=== PATIENT | female | born 1975 | race Caucasian/White ===

== ENCOUNTER 2017-01-14 05:42 | Observation (INO) | payer OTHER ==
[2017-01-14] MEDS ORDERED: LIDOCAINE 1% 2 ML INJ ID PRN (06:09)
[2017-01-14] MEDS ORDERED: LR 1,000 ML IV ONE (06:09)
[2017-01-14] MEDS ORDERED: BUPIVACAINE 0.25% 30 ML SDV ONE (06:55)
[2017-01-14] MEDS ORDERED: MIDAZOLAM 2 MG/2 ML VIAL IVP ONE (06:57)
--- NOTE | 2017-01-14 06:59 | PDANEPAE ---
ANE History of Present Illness Hysterectomy ANE Past Medical History - Cardiovascular History Hx Hypertension: No Hx Arrhythmias: No Hx Chest Pain: No Hx Coronary Artery / Peripheral Vascular Disease: No Hx CHF / Valvular Disease: No Hx Palpitations: No - Pulmonary History Hx COPD: No Hx Asthma/Reactive Airway Disease: No Hx Recent Upper Respiratory Infection: No Hx Oxygen in Use at Home: No Hx Sleep Apnea: No Sleep Apnea Screening Result - Last Documented: Negative - Neurologic History Hx Cerebrovascular Accident: No Hx Seizures: No Hx Dementia: No - Endocrine History Hx Diabetes: No - Renal History Hx Renal Disorders: No - Liver History Hx Hepatic Disorders: No - Neurological & Psychiatric Hx Hx Neurological and Psychiatric Disorders: No - Cancer History Hx Cancer: No - Congenital Disorder History Hx Congenital Disorders: No - GI History Hx Gastrointestinal Disorders: Yes Gastrointestinal History Comment: REFUX - Other Health History Other Health History: NONE - Chronic Pain History Chronic Pain: No - Surgical History Prior Surgeries: NONE ANE Review of Systems Review of systems is: negative Review of Systems: - Exercise capacity Exercise capacity: >=4 METS METS (RN): 4 METS ANE Patient History - Allergies Allergies/Adverse Reactions: No Known Allergies Allergy (Verified 12/26/16 11:06) - Home Medications Home Medications: NK [No Known Home Meds] 12/19/16 [Last Taken Unknown] - NPO status NPO Status: no food or drink >8 hours NPO Since - Liquids (Date): 01/14/17 NPO Since - Liquids (Time): 05:30 NPO Since - Solids (Date): 01/13/17 NPO Since - Solids (Time): 19:15 - Anes Hx Anes Hx: post operative nausea and vomiting Hx Anesthesia Complications (with details): none x 10yrs - Smoking Hx Smoking Status: Never smoked - Alcohol Use Alcohol Use: Rarely - Family Anes Hx Family Hx Anesthesia Complications: NONE ANE Labs/Vital Signs - Vital Signs Blood Pressure: 125/81 Heart Rate: 94 Respiratory Rate: 18 O2 Sat (%): 98 Height: 162.56 cm Weight: 78.471 kg ANE Physical Exam - Airway Mallampati Score: Class 2 Mouth exam: normal dental/mouth exam - Pulmonary Pulmonary: no respiratory distress - Cardiovascular Cardiovascular: regular rate and rhythym - ASA Status ASA Status: I ANE Anesthesia Plan Anesthesia Plan: general endotracheal anesthesia
[2017-01-14] MEDS ORDERED: SCOPOLAMINE HYDROBROMIDE 1 MG/3 DAYS PATCH TD SCH (07:00)
[2017-01-14] MEDS ORDERED: ceFAZolin 2 GM/SWFI 2 GM/20 ML SYR IVP ONE (07:14)
[2017-01-14] MEDS ORDERED: LIDOCAINE 2% 5 ML SDV ONE (07:15)
[2017-01-14] MEDS ORDERED: fentaNYL 100 MCG/2 ML INJ ONE ×4 (07:15→09:56)
[2017-01-14] MEDS ORDERED: ONDANSETRON 4 MG/2 ML VIAL ONE (07:15)
[2017-01-14] MEDS ORDERED: ROCURONIUM 100 MG/10 ML VIAL ONE (07:15)
[2017-01-14] MEDS ORDERED: DEXAMETHASONE 4 MG/ML VIAL ONE (07:15)
[2017-01-14] MEDS ORDERED: PROPOFOL 200 MG/20 ML VIAL ONE (07:15)
[2017-01-14] MEDS ORDERED: ceFAZolin 1 GM VIAL ONE ×2 (07:23)
[2017-01-14] MEDS ORDERED: KETOROLAC 30 MG/1 ML SDV ONE (09:35)
[2017-01-14] MEDS ORDERED: SUGAMMADEX SODIUM 200 MG/2 ML VIAL IVP ONE (09:35)
[2017-01-14] MEDS ORDERED: HYDROmorphONE/DILAUDID 1 MG/ML INJ IVP PRN ×2 (10:19→10:20)
[2017-01-14] MEDS ORDERED: PROMETHAZINE HCL 25 MG/ML INJ IVP PRN ×2 (10:19→10:20)
[2017-01-14] MEDS ORDERED: ACETAMINOPHEN 500 MG TAB PO PRN (10:19)
[2017-01-14] MEDS ORDERED: OXYCODONE/APAP 5/325 TAB PO PRN (10:19)
[2017-01-14] MEDS ORDERED: ALBUTEROL 3 ML DEYVIAL IH PRN (10:19)
[2017-01-14] MEDS ORDERED: NALOXONE HCL 0.4 MG/ML INJ IVP PRN (10:19)
[2017-01-14] MEDS ORDERED: fentaNYL 100 MCG/2 ML INJ IVP PRN (10:19)
[2017-01-14] MEDS ORDERED: HYDROCODONE/APAP 5/325 TAB PO PRN ×2 (10:19→10:20)
[2017-01-14] MEDS ORDERED: ONDANSETRON 4 MG/2 ML VIAL IVP PRN ×2 (10:19→10:20)
--- NOTE | 2017-01-14 10:19 | POSTANESTH ---
Post Anesthetic Evaluation Cardiovascular Status: Normal, Stable Respiratory Status: Normal, Stable Level of Consciousness/Mental Status: Can Participate in Eval Pain Control: Adequate, Prn Tx Ordered Nausea/Vomiting Control: Adequate, Prn Tx Ordered Complications Possibly Related to Anesthesia: None Noted
[2017-01-14] MEDS ORDERED: DIAZEPAM 10 MG/2 ML SYR IVP PRN (10:20)
--- NOTE | 2017-01-14 10:20 | POSTOPPROG ---
Post Op Note Date of Operation: 01/14/17 Surgeon: Buck Barrera Chain Link Fence Installer: Marilia Rankin Anesthesia: GET(General Endotracheal) Pre-op Diagnosis: Uterovaginal prolapse Post-op Diagnosis: Same Procedure: Robotic hyst, sacrocolpopexy, TOT sling, cysto Findings: Ureters function at end of case Inf/Abcess present in the surg proc area at time of surgery?: No EBL: Minimal Complications: None
[2017-01-14] MEDS ORDERED: LR 1,000 ML IV SCH (10:30)
[2017-01-14] MEDS ORDERED: HYDROmorphONE/DILAUDID 1 MG/ML INJ ONE (10:53)
[2017-01-14] MEDS: SIMETHICONE 80 MG TAB CHEW PO SCH ×3 (17:02→23:05)
[2017-01-14] MEDS: KETOROLAC 30 MG/1 ML SDV IVP SCH ×4 (17:09→23:38)
[2017-01-14] MEDS: DOCUSATE SODIUM 100 MG CAP PO SCH (22:19)
[2017-01-15] MEDS: KETOROLAC 30 MG/1 ML SDV IVP SCH ×3 (01:48→11:10)
[2017-01-15 05:56] LABS: HEMATOCRIT 32.3 % (38.0-47.0); HEMOGLOBIN 10.9 g/dL (12.6-16.3)
[2017-01-15] MEDS: DOCUSATE SODIUM 100 MG CAP PO SCH (08:32)
[2017-01-15 09:10] VITALS: BP 102/71; PULSE 92; RESP 14; TEMP 97.5; O2SAT 99
[2017-01-15] MEDS: SIMETHICONE 80 MG TAB CHEW PO SCH (10:27)
--- NOTE | 2017-01-15 11:45 | GOP ---
[f rep st] OPERATIVE REPORT DATE OF OPERATION: 01/14/2017 SURGEON: Buck Barrera MD MUSIC TEACHER: Marilia Rankin CFA. ANESTHESIA: General. PREOPERATIVE DIAGNOSIS: 1. Cystocele. 2. Rectocele. 3. Uterine prolapse. 4. Dysmenorrhea. 5. Stress urinary incontinence. 6. Endometriosis. POSTOPERATIVE DIAGNOSIS: 1. Cystocele. 2. Rectocele. 3. Uterine prolapse. 4. Dysmenorrhea. 5. Stress urinary incontinence. 6. Endometriosis. PROCEDURE PERFORMED: 1. Robotic-assisted laparoscopic hysterectomy, left salpingo-oophorectomy, right salpingectomy. 2. Robotic-assisted laparoscopic sacrocervicopexy with mesh. 3. Excision of endometriosis. 4. Left ureterolysis. 5. Repair of cystocele and rectocele. 6. Transobturator sling. 7. Perineorrhaphy. 8. Cystoscopy. FINDINGS: SPECIMENS: Uterus, bilateral tubes, left ovary, and peritoneum with endometriosis. ESTIMATED BLOOD LOSS: Less than 20 mL. DESCRIPTION OF PROCEDURE: The patient was taken to the operating room where she was identified. General anesthesia was administered and found to be adequate. She was placed in the lithotomy position and prepared and draped in normal sterile fashion. A Rooney catheter was placed in her bladder. A 1 cm infraumbilical incision was made with a scalpel. The Veress needle with a CO2 gas flowing was advanced into the peritoneal cavity. The abdomen was then insufflated with carbon dioxide gas. The 10 mm trocar followed by the laparoscope were then inserted. The upper abdomen was unremarkable. Two lateral ports placed on either side under direct visualization. She then was placed in Trendelenburg position and the da Laron robot docked on the left side. The instruments were then brought into the abdominal cavity under direct visualization. She was found to have endometriosis in the posterior cul-de-sac and underneath the cervix. The left round ligament was divided. The anterior leaf of the broad ligament was incised to the bifurcation of left common iliac vessels. The ureter was gently dissected free. A window was created in the medial leaf to skeletonize the infundibulopelvic vessels. They were then cauterized and transected. The ureter was adherent to the peritoneum in the ovarian fossa. Given the overlying endometriosis, a ureterolysis was required to safely excise the peritoneum and endometriosis without injuring the ureter. The ureter was then lateralized all the way down to the bladder off the overlying peritoneum and endometriosis. This area was then completely excised. The posterior cul-de-sac peritoneum was also excised to remove the endometriosis. The anterior leaf of the broad ligament was incised over the left uterine vessels and across the cervix. The bladder was gently dissected off the cervix and upper vagina. The left uterine vasculature was then cauterized and transected. The right fallopian tube was then along the mesosalpinx. The utero- ovarian ligament, followed by the round ligament, were then cauterized and transected. The right uterine vessels were then cauterized and transected. The uterus and upper 2/3 of the cervix were amputated from the lower third of the cervix with the hot vijaya. The uterus had been bivalved to aid in removal through the umbilicus. The specimen placed in the right upper quadrant for later removal. The Colpo-Probe was placed in the vagina. The bladder was gently dissected off the anterior vaginal wall and down to the level of the bladder neck. The rectovaginal space was then entered and the rectum dissected off the posterior vaginal wall down to the level of the perineal body. Measurements were then obtained and the mesh trimmed to size. The sigmoid colon was then retracted laterally. The peritoneum over the sacral promontory was incised. The fat pad was gently dissected off the anterior longitudinal ligament. The cervical stump was closed with a [id number] suture of 0 Monocryl. The mesh was brought into the abdominal cavity. Three sutures of 4-0 Nineveh-Panchito were used to attach the distal posterior mesh to the perineal body. Two additional rows of Nineveh-Panchito sutures were placed posteriorly. Three rows were placed anteriorly to suture the anterior mesh down to the level of the bladder neck. The Colpo-Probe was then removed. The sacral arm of the mesh was placed over the promontory and the tension adjusted. I then scrubbed back into the case to examine the vagina. The tension was further adjusted to resolve the cystocele and rectocele without undue tension on the vagina. Three sutures of 2-0 Nineveh-Panchito were used to attach the sacral arm of the mesh to the anterior longitudinal ligament at the level of the upper first sacral vertebral body. The peritoneum was then closed over the entire mesh. The robot was then undocked. The specimen was removed through the umbilicus. Attention was then turned to the sling portion of the procedure. A mid urethral incision was made with a scalpel. Tunnels were created bilaterally out to the obturator internus muscles. Skin incisions were made over the obturator notches. The curved trocar was placed through the left skin incision , redirected around the ischial pubic rami and out through the vaginal incision using a vaginal finger as a guide. The sling was then attached and brought out along the same course. The exact same procedure was performed on the patient's right side. The sling was then adjusted to allow a small mid urethral gap. Cystoscopy was then performed. Both ureters had vigorous jets of urine. There was no evidence of bladder nor urethral injury seen. No mesh nor suture was seen within the bladder nor urethra. The vaginal exam is closed with 2-0 Vicryl , skin with 4-0 Monocryl. A perineorrhaphy was then performed by plicating the rectovaginal connective tissue as well as the bulbous spongiosis transverse perineal muscles. Vaginal packing was then placed, anesthesia was reversed, and the patient taken the PACU awake, in stable condition. COMPLICATIONS: None. DISPOSITION: Patient stable to PACU. /[id number]/MODL MTDD
[2017-01-15] MEDS ORDERED: KETOROLAC 30 MG/1 ML SDV IVP SCH (23:00)
--- NOTE | 2017-01-16 21:56 | GDS ---
[f rep st] DISCHARGE SUMMARY DISCHARGE DIAGNOSES: 1. Uterovaginal prolapse. 2. Stress urinary incontinence. 3. Dysmenorrhea. 4. Endometriosis. PROCEDURES: 1. Robotic-assisted laparoscopic hysterectomy, left salpingo-oophorectomy, right salpingectomy. 2. Laparoscopic sacral cervical pexy with mesh. 3. Repair of cystocele and rectocele. 4. Excision of endometriosis. 5. Left ureterolysis. 6. Transobturator sling. 7. Perineorrhaphy. 8. Cystoscopy. HISTORY OF PRESENT ILLNESS: Cyndie suffers from uterovaginal prolapse, as well as dysmenorrhea from e ndometriosis. She was taken to the operating room on 01/14/2017 where she underwent the above-mentio bernice procedures without complications. Her postoperative course was uneventful. The morning after surgery she was ambulating, voiding, and tolerating a general diet. She was discharged to home with [place] and ibuprofen for pain. She was to call me 2 weeks postoperatively to discuss her condition because she [place] so far away. I f she was doing well, she likely would return for a 6-week visit. /[id number]/MODL
[2017-01-17] MEDS ORDERED: PATCH REMOVAL 1 EA PATCH TD SCH (06:57)
== END 2017-01-15 12:18 | disposition home or self-care (01) ==
LOC: F3N 05:42 → F3E 05:42 → UNDOADMOB 05:42 → EDBD 07:15 → FOB 11:45
PROVIDERS: ADMIT Obstetrics & Gynecology; ATTEND Obstetrics & Gynecology
PROC: 0UT74ZZ Resection of Bilateral Fallopian Tubes, Percutaneous Endoscopic Approach (ICD-10-PCS; principal; 2017-01-14 07:15)
PROC: 0WQN0ZZ Repair Female Perineum, Open Approach (ICD-10-PCS; principal; 2017-01-14 07:15)
PROC: 0UT94ZZ Resection of Uterus, Percutaneous Endoscopic Approach (ICD-10-PCS; principal; 2017-01-14 07:15)
PROC: 0JQC0ZZ Repair Pelvic Region Subcutaneous Tissue and Fascia, Open Approach (ICD-10-PCS; principal; 2017-01-14 07:15)
PROC: 0UT14ZZ Resection of Left Ovary, Percutaneous Endoscopic Approach (ICD-10-PCS; principal; 2017-01-14 07:15)
PROC: 8E0W4CZ Robotic Assisted Procedure of Trunk Region, Percutaneous Endoscopic Approach (ICD-10-PCS; principal; 2017-01-14 07:15)
PROC: 0TSD0ZZ Reposition Urethra, Open Approach (ICD-10-PCS; principal; 2017-01-14 07:15)
DX: N81.3 Complete uterovaginal prolapse (principal); N94.6 Dysmenorrhea, unspecified; N39.3 Stress incontinence (female) (male); N80.3 Endometriosis of pelvic peritoneum; D25.9 Leiomyoma of uterus, unspecified
CPT/HCPCS: 51992; 57260; 58571; G0378; S2900; C1763; C1771; J0690; J1100; J1170; J1885; J2250; J2405; J2704; J3010